=== PATIENT | female | born 1950 | race Caucasian/White ===

== ENCOUNTER 2024-01-04 12:15 | Inpatient (IN) | payer MEDICARE, MEDICAID ==
[~2024-01-04] VITALS: Ht 175.3 cm; Wt 57.3 kg
[2024-01-04 13:43] VITALS: PULSE 72; RESP 18; O2SAT 94
[2024-01-04 14:14] LABS: Basophils # (auto) 0 10 ^3/uL (0-0.2); Basophils % (auto) 0.2 % (0.0-2.0); Eosinophils # (auto) 0 10 ^3/uL (0-0.8); Eosinophils % (auto) 0.1 % (0.0-7.0); Hematocrit 35.9 % (36.0-46.0); Hemoglobin 11.7 g/dL (12.2-16.2); Lymphocytes # (auto) 1.4 10 ^3/uL (0.4-5.4); Lymphocytes % (auto) 8.2 % (10.0-50.0); Mean Corpuscular Hemoglobin 29.4 pg (28.0-32.0); Mean Corpuscular Hgb Conc. 32.5 g/dL (32.0-36.0); Mean Corpuscular Volume 90.5 fL (80.0-100.0); Monocytes # (auto) 1.5 10 ^3/uL (0-1.3); Monocytes % (auto) 9.1 % (0.0-12.0); Neutrophils # (auto) 13.7 10 ^3/uL (1.6-8.6); Neutrophils % (auto) 82.4 % (37.0-80.0); Red Blood Cells 3.97 10^6/uL (4.0-5.20); Red Cell Distribution Width 16.8 % (11.8-14.3); White Blood Cell 16.6 10^3/uL (4.4-10.8)
[2024-01-04 14:23] LABS: Albumin 3.9 g/dL (3.2-4.8); Alkaline Phosphatase 95 U/L (46-116); Anion Gap 5 (5-15); Aspartate Aminotransferase 13 U/L (13-40); BUN/Creatinine Ratio 13.5 (10.0-20.0); Blood Urea Nitrogen 7 mg/dL (9-23); Calcium 9.3 mg/dL (8.5-10.1); Carbon Dioxide 29 mmol/L (20-30); Chloride 104 mmol/L (98-107); Glucose 106 mg/dL (74-106); Potassium 3.4 mmol/L (3.5-5.1); Sodium 138 mmol/L (136-145)
[2024-01-04 14:24] LABS: Bilirubin, Total 0.5 mg/dL (0.2-1.0); Total Protein 7.2 g/dL (5.7-8.2)
[2024-01-04 14:25] LABS: Alanine Aminotransferase < 9 U/L (7-40)
[2024-01-04] MEDS: IOHEXOL 300 MG/ML 100ML BOTTLE IJ ONE (15:43)
[2024-01-04] MEDS ORDERED: ONDANSETRON HCL 4 MG/2 ML VIAL IV PRN (16:45)
[2024-01-04] MEDS: SODIUM CHLORIDE 0.9% 1,000 ML IV SCH (16:45)
[2024-01-04] MEDS: SODIUM CHLORIDE 0.9% 1,000 ML IV ONE (17:01)
[2024-01-04] MEDS: ONDANSETRON HCL 4 MG/2 ML VIAL IV ONE (17:21)
[2024-01-04] MEDS: MORPHINE SULFATE 4 MG/ML SYR/VIAL IV ONE (17:21)
[2024-01-04 17:24] LABS: Magnesium 1.9 mg/dL (1.6-2.6)
[2024-01-04 17:26] LABS: Phosphorus 3.1 mg/dL (2.4-5.1)
[2024-01-04] MEDS: cefTRIAXone 1GM/50ML D5W 50 ML IV ONE (17:42)
[2024-01-04] MEDS: PANTOPRAZOLE 40 MG/10 ML VIAL INJ IV ONE (17:42)
[2024-01-04] MEDS: ACETAMINOPHEN 325 MG TAB PO PRN (18:42)
[2024-01-04] MEDS: ENOXAPARIN SOD 40 MG/0.4 ML SYRINGE SC SCH (18:42)
[2024-01-04] MEDS: POTASSIUM EFFERVESENT TAB 25 MEQ PO ONE (18:43)
[2024-01-04 20:45] LABS: Urine Bacteria None Seen /hpf (None Seen)
[2024-01-04 21:00] VITALS: BP 133/64; PULSE 66; RESP 18; TEMP 98.1; O2SAT 99
[2024-01-04 21:27] LABS: Urine Blood Negative /uL (Negative); Urine Budding Yeast OCCASIONAL /hpf (None Seen); Urine Clarity Clear (Clear); Urine Color Light-Yellow (Yellow); Urine Mucus FEW (None Seen); Urine Protein, UAD TRACE (Negative); Urine Urobilinogen Normal (Negative); Urine WBC 6 /hpf (0 - 5)
[2024-01-04 21:28] LABS: Urine Specific Gravity > 1.035 (1.001-1.035)
[2024-01-04] MEDS: MORPHINE SULFATE INJ 2 MG/ml SYRG IV PRN (22:53)
[2024-01-05] VITALS (7 sets, daily range): BP systolic 107–135; BP diastolic 47–68; PULSE 60–71; RESP 15–18; TEMP 97.5–98; O2SAT 95–100
[2024-01-05] MEDS ORDERED: LOSA-533 PO (02:11)
[2024-01-05] MEDS ORDERED: BUDE1AER16 IN (02:11)
[2024-01-05] MEDS ORDERED: DOCU-94 PO (02:27)
[2024-01-05] MEDS ORDERED: MULTTAB75 PO (02:27)
[2024-01-05] MEDS ORDERED: ATOR20TA50 PO (02:27)
[2024-01-05] MEDS ORDERED: OXY5T PO (02:27)
[2024-01-05] MEDS ORDERED: TRIA0.1P2 TOP (02:27)
[2024-01-05] MEDS ORDERED: ACET-1881 PO (02:27)
[2024-01-05] MEDS ORDERED: DIPH25CA66 PO (02:27)
[2024-01-05] MEDS ORDERED: GABA-339 PO ×2 (02:27→13:24)
[2024-01-05] MEDS ORDERED: SODIENE35 RE (02:27)
[2024-01-05] MEDS ORDERED: SENN-62 PO (02:27)
[2024-01-05] MEDS ORDERED: BISA10SU5 RE (02:27)
[2024-01-05 06:41] LABS: Basophils # (auto) 0.1 10 ^3/uL (0-0.2); Basophils % (auto) 0.5 % (0.0-2.0); Eosinophils # (auto) 0.1 10 ^3/uL (0-0.8); Eosinophils % (auto) 1.2 % (0.0-7.0); Hematocrit 35.3 % (36.0-46.0); Hemoglobin 11.7 g/dL (12.2-16.2); Lymphocytes # (auto) 1.8 10 ^3/uL (0.4-5.4); Lymphocytes % (auto) 17.6 % (10.0-50.0); Mean Corpuscular Hemoglobin 29.5 pg (28.0-32.0); Mean Corpuscular Hgb Conc. 33.1 g/dL (32.0-36.0); Mean Corpuscular Volume 89.3 fL (80.0-100.0); Monocytes # (auto) 1.2 10 ^3/uL (0-1.3); Monocytes % (auto) 11.9 % (0.0-12.0); Neutrophils # (auto) 7.2 10 ^3/uL (1.6-8.6); Neutrophils % (auto) 68.8 % (37.0-80.0); Red Blood Cells 3.95 10^6/uL (4.0-5.20); Red Cell Distribution Width 16.7 % (11.8-14.3); White Blood Cell 10.5 10^3/uL (4.4-10.8)
[2024-01-05 07:14] LABS: Albumin 3.4 g/dL (3.2-4.8); Alkaline Phosphatase 80 U/L (46-116); Anion Gap 4 (5-15); Aspartate Aminotransferase 12 U/L (13-40); BUN/Creatinine Ratio 9.1 (10.0-20.0); Blood Urea Nitrogen 5 mg/dL (9-23); Calcium 9.1 mg/dL (8.7-10.4); Carbon Dioxide 30 mmol/L (20-30); Chloride 105 mmol/L (98-107); Glucose 98 mg/dL (74-106); Potassium 3.8 mmol/L (3.5-5.1); Sodium 139 mmol/L (136-145)
[2024-01-05 07:15] LABS: Bilirubin, Total 0.3 mg/dL (0.2-1.0); Total Protein 6.5 g/dL (5.7-8.2)
[2024-01-05 07:23] LABS: Alanine Aminotransferase < 9 U/L (7-40)
[2024-01-05] MEDS: cefTRIAXone 1GM/50ML D5W 50 ML IV SCH (08:56)
[2024-01-05] MEDS: PANTOPRAZOLE 40 MG/10 ML VIAL INJ IV SCH (08:56)
[2024-01-05] MEDS: GABAPENTIN 300 MG CAP PO ONE (14:14)
[2024-01-05] MEDS ORDERED: CARB0.5D8 EACHEYE (14:32)
[2024-01-05] MEDS: GLYCERIN EACHEYE SCH (19:05)
[2024-01-05] MEDS: oxyCODONE HCL 5MG TAB PO SCH (19:05)
[2024-01-05] MEDS: CARBOXYMETHYLCELLULOSE EACHEYE SCH (19:05)
[2024-01-05] MEDS: GABAPENTIN 300 MG CAP PO SCH (21:52)
[2024-01-06] VITALS (7 sets, daily range): BP systolic 115–145; BP diastolic 54–89; PULSE 58–79; RESP 16–19; TEMP 97.5–97.9; O2SAT 93–100
[2024-01-06] MEDS: oxyCODONE HCL 5MG TAB PO PRN (09:27)
[2024-01-06] MEDS: DOCUSATE SOD 100 MG CAP PO PRN (13:51)
[2024-01-07] VITALS (8 sets, daily range): BP systolic 119–150; BP diastolic 56–77; PULSE 56–83; RESP 17–19; TEMP 97.6–98.2; O2SAT 93–100
[2024-01-07] MEDS ORDERED: GADOTERATE MEG 10 MMOL/20ml INJ (0.5MMOL/ml) IV ONE (10:35)
[2024-01-07] MEDS: LACTULOSE 20Gm/30ML SOLN PO ONE (12:33)
[2024-01-07] MEDS: LOSARTAN POTASSIUM 25 MG TAB PO ONE (14:43)
[2024-01-07] MEDS ORDERED: LACTULOSE 20Gm/30ML SOLN PO SCH (18:00)
[2024-01-08] VITALS (8 sets, daily range): BP systolic 90–146; BP diastolic 55–75; PULSE 59–77; RESP 16–18; TEMP 97.9–98.3; O2SAT 93–99
[2024-01-08 10:17] LABS: Base Excess 2.5 mmol/L (-2.0-2.0)
[2024-01-08] MEDS: LOSARTAN POTASSIUM 25 MG TAB PO SCH (10:55)
[2024-01-09 01:00] VITALS: BP 103/54; PULSE 77; RESP 16; TEMP 98.4; O2SAT 93
[2024-01-09 05:00] VITALS: BP 138/60; PULSE 68; RESP 16; TEMP 98; O2SAT 95
[2024-01-09] MEDS: PANTOPRAZOLE 40 MG TAB PO SCH (06:03)
[2024-01-09 08:00] VITALS: PULSE 72; RESP 19; O2SAT 96
[2024-01-09 09:00] VITALS: BP 125/73; PULSE 72; RESP 19; TEMP 97.9; O2SAT 96
[2024-01-09 12:01] VITALS: BP 125/73; TEMP 36.6
[2024-01-09 12:08] VITALS: BP 125/73; PULSE 72; RESP 19
== END 2024-01-09 13:25 | disposition home health service (06) | DRG 254 ==
LOC: ER 12:15 → OVERFLOW 16:49 → CENTRAL 17:53
PROVIDERS: ADMIT Nurse Practitioner Family; ATTEND Internal Medicine
DX: K43.9 Ventral hernia without obstruction or gangrene (principal); J96.00 Acute respiratory failure, unspecified whether with hypoxia or hypercapnia; M48.54XA Collapsed vertebra, not elsewhere classified, thoracic region, initial encounter for fracture; D72.829 Elevated white blood cell count, unspecified; E87.6 Hypokalemia; G89.29 Other chronic pain; N28.1 Cyst of kidney, acquired; Z96.652 Presence of left artificial knee joint; Z96.641 Presence of right artificial hip joint; D64.9 Anemia, unspecified; M81.0 Age-related osteoporosis without current pathological fracture; I10 Essential (primary) hypertension; K59.00 Constipation, unspecified; Z74.01 Bed confinement status; Z93.3 Colostomy status
CPT/HCPCS: 36415; 36600; 71045; 74177; 74181; 80053; 81001; 82805; 83735; 84100; 85025; 87040; 93005; 97116; 97163; 97530; G0378; J2405; J2470